=== PATIENT | female | born 1960 | race Caucasian/White ===

== ENCOUNTER 2017-03-27 13:21 | Emergency (ER) | payer OTHER ==
[~2017-03-27] VITALS: Wt 117.9 kg
[~2017-03-27 13:21] MED LIST: 'PARAFON FORTE500 M1 PO; ACETAMINOPHEN-H1 TA2 PO; ATARAX,VISTARIL50 MG PO; BACTRIM DS 8001 TA1 PO; CARAFATE1 G1 PO; CLINDAMYCIN HC300 MG PO; CYCLOBENZAPRINE10 MG PO; NEXIUM20 M1 PO; NEXIUM40 MG PO; PREDNISONE10 MG PO; PREDNISONE20 MG PO; PREDNISONE50 MG PO; PREVACID30 M1 PO; PROAIR HFA0.09 MG/AC INH; PROAIR HFA8.5 GM INH; PROCARDIA10 MG PO; PYRIDIUM200 MG PO; ROBITUSSIN AC 110 ML PO; TAB-A-VITE1 TA3 PO; ULTRAM50 MG PO; VIBRAMYCIN100 MG PO; VITAMIN B150 MG PO; VITAMIN D5000 UNIT PO; ZITHROMAX Z PA250 MG PO
[2017-03-27] MEDS ORDERED: HYDROXYZINE HCL25 M1 PO (13:34)
[2017-03-27] MEDS ORDERED: CYCLOBENZAPRINE10 MG PO (14:13)
[2017-03-27] MEDS ORDERED: HYDROCODONE BIT1 T11 PO (14:13)
[2017-03-27] MEDS ORDERED: PREDNISONE50 MG PO (14:13)
== END 2017-03-27 21:12 | disposition home or self-care (01) ==
LOC: ED 13:21
DX: S39.012A Strain of muscle, fascia and tendon of lower back, initial encounter (principal); F17.200 Nicotine dependence, unspecified, uncomplicated; F17.210 Nicotine dependence, cigarettes, uncomplicated; K21.9 Gastro-esophageal reflux disease without esophagitis; J45.909 Unspecified asthma, uncomplicated; Z79.899 Other long term (current) drug therapy; Z88.0 Allergy status to penicillin; Z88.1 Allergy status to other antibiotic agents; Z88.6 Allergy status to analgesic agent; X50.1XXA Overexertion from prolonged static or awkward postures, initial encounter; Y93.89 Activity, other specified; Y92.89 Other specified places as the place of occurrence of the external cause; Y99.8 Other external cause status

== ENCOUNTER 2017-07-10 17:26 | Inpatient (IN) | payer OTHER ==
[~2017-07-10] VITALS: Ht 162.5 cm; Wt 114.3 kg
[~2017-07-10 17:26] MED LIST changes: +HYDROCODONE BIT1 T11 PO; +HYDROXYZINE HCL25 M1 PO
[2017-07-10 17:33] VITALS: BP 138/68
[2017-07-10 18:29] LABS: HEMATOCRIT 39.4 % (37.0-47.0); HEMOGLOBIN 13.5 g/dl (12.0-16.0); MEAN CELL VOLUME 92.1 fl (81.0-99.0); MEAN CORPUSCULAR HGB 31.5 pg (27.0-31.0); MEAN CORPUSCULAR HGB CONC 34.3 g/dl (33.0-37.0); PLATELET COUNT AUTOMATED 132 10*3/uL (130-400); RED BLOOD COUNT 4.28 10*6/uL (4.10-5.10); RED CELL DISTRI WIDTH 12.3 % (0-14.5); WHITE BLOOD COUNT 15.3 10*3/uL (4.8-10.8)
[2017-07-10 18:44] LABS: ALBUMIN 3.1 gm/dl (3.1-4.5); ALKALINE PHOSPHATASE 116 U/L (45-117); BUN 9 mg/dl (7-24); CHLORIDE 105 mmol/L (98-107); POTASSIUM 3.7 mmol/L (3.5-5.1); SGOT/AST 39 IU/L (3-35); SGPT/ALT 44 U/L (12-78); SODIUM 137 mmol/L (136-145); TOTAL PROTEIN 7.5 gm/dL (6.4-8.2)
[2017-07-10 18:45] LABS: LIPASE 2297 U/L (73-393)
[2017-07-10 18:46] LABS: TOTAL CELLS COUNTED 100 #CELLS
[2017-07-10 18:47] LABS: PLATELET SUFFICIENCY NORMAL (NORMAL)
--- NOTE | 2017-07-10 19:10 | NUR ---
PT LYING IN BED IN ROOM. PT ALERT AND ORIENTED. IV PEPCID RUNNING. WILL CONTINUE TO MONITOR.
--- NOTE | 2017-07-10 19:24 | NUR ---
PT STATES THAT THE GI COCKTAIL THAT WAS GIVEN TO HER DID NOT GIVE HER MUCH PAIN RELIEF. PT STATES "IT TOOK THE EDGE OFF BUT IM STILL IN ALOT OF PAIN". PT RATES PAIN 8/10 AND PRIOR TO THE GI COCKTAIL PAIN WAS 10/10.
--- NOTE | 2017-07-10 19:31 | NUR ---
PT MEDICATED FOR PAIN PER DOCTORS ORDERS. PT RATES PAIN 03/29. WILL CONTINUE TO MONITOR.
[2017-07-10 19:33] VITALS: BP 134/47
[2017-07-10 19:38] LABS: BILIRUBIN 1+ (NEGATIVE); BLOOD NEGATIVE (NEGATIVE); CLARITY CLEAR (CLEAR); COLOR YELLOW (YELLOW); GLUCOSE NEGATIVE (NEGATIVE); KETONE 2+ (NEGATIVE); LEUKO ESTERASE 2+ (NEGATIVE); NITRITE POSITIVE (NEGATIVE)
--- NOTE | 2017-07-10 19:45 | NUR ---
PT STATES THAT THE MEDICATION GIVEN PROVIDED RELIEF OF PAIN. PT RATES PAIN 08/29. DOCTOR NOTIFIED. NO NEW ORDERS AT THIS TIME. WILL CONTINUE TO MONITOR.
[2017-07-10 20:02] LABS: BACTERIA 2+; WBC 16-20 wbc/hpf (0-5)
[2017-07-10 20:45] VITALS: BP 158/60
--- NOTE | 2017-07-10 21:30 | NUR ---
PT MEDICATED FOR PAIN PER DOCTORS ORDERS. PT RATES PAIN 7/10 PRIOR TO MEDICATION ADMINISTRATION. VSS. WILL CONTINUE TO MONITOR.
[2017-07-10 21:45] VITALS: BP 156/64
--- NOTE | 2017-07-10 22:00 | NUR ---
PT STATES THAT THE MEDICATION PROVIDED RELIEF OF PAIN. PT RATES PAIN 08/29. DOCTOR NOTIFIED. NO NEW ORDERS AT THIS TIME. WILL CONTINUE TO MONITOR.
[2017-07-10 22:15] VITALS: BP 134/66
--- NOTE | 2017-07-10 22:15 | NUR ---
Time: 2214 A 56 year old FEMALE admitted to 5E under services of PREET JOHNSON DO. Pt. arrived via bed from ER. Chief complaint: ABDOMINAL PAIN. ROSE VIERA
--- NOTE | 2017-07-10 22:50 | NUR ---
ATTEMPTED TO CALL RESIDENT FOR ADMISSION ORDERS AT THIS TIME.
--- NOTE | 2017-07-10 23:15 | NUR ---
ATTEMPTED TO CALL RESIDENT AGAIN FOR ORDERS AT THIS TIME.
[2017-07-11] VITALS: BP 127/76
--- NOTE | 2017-07-11 01:52 | NUR ---
MEDICATED WITH 1X DOSE OF ZOFRAN ORDERED FOR PATIENT C/O NAUSEA.
--- NOTE | 2017-07-11 03:31 | NUR ---
PATIENT MEDICATED WITH PRN MORPHINE ORDERED FOR C/O BACK AND STOMACH PAIN RATED AN 8.
--- NOTE | 2017-07-11 04:30 | NUR ---
EARLIER MEDICATION EFFECTIVE PER PATIENT.
[2017-07-11 04:55] LABS: HEMATOCRIT 36.1 % (37.0-47.0); HEMOGLOBIN 12.4 g/dl (12.0-16.0); MEAN CELL VOLUME 93.3 fl (81.0-99.0); MEAN CORPUSCULAR HGB CONC 34.3 g/dl (33.0-37.0); MEAN PLATELET VOLUME 11.3 fl (9.6-12.3); PLATELET COUNT AUTOMATED 115 10*3/uL (130-400); RED BLOOD COUNT 3.87 10*6/uL (4.10-5.10); RED CELL DISTRI WIDTH 12.6 % (0-14.5); WHITE BLOOD COUNT 19.3 10*3/uL (4.8-10.8)
[2017-07-11 05:03] LABS: ACT PARTIAL THROMBO TIME 28.6 SECONDS (20.8-31.5); INTERNATIONAL NORM RATIO 1.1 (2.0-3.5)
[2017-07-11 05:10] LABS: ALBUMIN 2.8 gm/dl (3.1-4.5); ALKALINE PHOSPHATASE 102 U/L (45-117); BUN 8 mg/dl (7-24); CHLORIDE 107 mmol/L (98-107); CHOLESTEROL 96 mg/dL (<200); CREATININE 0.66 mg/dL (0.55-1.02); HDL CHOLESTEROL 62 mg/dl (40-60); LDL CHOLESTEROL 24 mg/dL (9-159); PHOSPHOROUS 2.3 mg/dL (2.5-4.9); POTASSIUM 3.9 mmol/L (3.5-5.1); SGOT/AST 33 IU/L (3-35); SGPT/ALT 39 U/L (12-78); SODIUM 141 mmol/L (136-145); TOTAL PROTEIN 6.8 gm/dL (6.4-8.2); TRIGLYCERIDES 48 mg/dl (<150); VLDL CHOLESTEROL 10 mg/dL (6-40)
[2017-07-11 05:11] LABS: FREE T4 1.29 ng/dl (0.76-1.46)
[2017-07-11 05:16] LABS: THYROID STIM HORMONE (HS) 0.702 uIU/ml (0.358-4.75)
[2017-07-11 05:19] LABS: PLATELET SUFFICIENCY LOW (NORMAL); TOTAL CELLS COUNTED 100 #CELLS
[2017-07-11 07:49] LABS: VITAMIN D, 25-HYDROXY 6.6 ng/mL (30-100)
[2017-07-11 08:00] VITALS: BP 164/73
--- NOTE | 2017-07-11 09:00 | NUR ---
[employer] in to talk to patient. Patient states lives at home with friend. There are few steps in the home. Physician: igor [facility]acy: [facility] [place] [facility]: none Patient's level of ADLs: INDEPENDENT Patient has working utilities: all working DME: none Follow-up physician's appointment after d/c: will be made by [facility] nurse director upon discharge Does patient want to access PORTAL?: no Discharge plan discussed with patient, patient lives at home with a friend, states she gets around fine, patient states she will be going back home when able and denies any home needs. DEYANIRA العلي
[2017-07-11 12:00] VITALS: BP 165/77
[2017-07-11 16:00] VITALS: BP 155/54
--- NOTE | 2017-07-11 16:38 | NUR ---
CALLED ON PAIN MED SCHEDULED FOR NOW. GAVE IV PAIN MED INSTEAD DO TO NPO STATUS. WILL CONTINUE TO MONITOR.
--- NOTE | 2017-07-11 16:40 | NUR ---
PT GIVEN PRN ZOFRAN AND DILAUDID. PRN MEDS EFFECTIVE PER PT. WILL CONTINUE TO MONITOR PT.
--- NOTE | 2017-07-11 18:32 | NUR ---
PT GIVEN PRN DILAUDID FOR PAIN. WILL CONINUE TO MONITOR
--- NOTE | 2017-07-11 19:05 | NUR ---
PT ASSESSED FOR PRN BREATHING TX. NOT INDICATED AT THIS TIME. 94% ON ROOM AIR.
--- NOTE | 2017-07-11 19:23 | NUR ---
PREN DILAUDED THAT WAS GIVEN AT 6:30 WAS EFFECTIVE. PT'S PAIN DIMINISHED.
[2017-07-11 20:00] VITALS: BP 109/46
--- NOTE | 2017-07-11 20:30 | NUR ---
PATIENT MEDICATED WITH DILAUDID 1 MG IV PER PRN ORDER FOR C/O STOMACH PAIN. SEE EMAR. REINFORCED USE OF CALL LIGHT.
--- NOTE | 2017-07-11 21:15 | NUR ---
PATIENT STATED MEDICATION EFFECTIVE FOR PAIN. IV FLUIDS INFUSING PER ORDER.
--- NOTE | 2017-07-11 22:40 | NUR ---
PATIENT MEDICATED SLOWLY WITH DILAUDID 1 MG IV PER PRN ORDER FOR C/O ABDOMINAL PAIN. RATED PAIN A 6/10 WITH 10 BEING THE WORST. SEE EMAR. REINFORCED USE OF CALL LIGHT
--- NOTE | 2017-07-11 23:00 | NUR ---
PATIENT RESTING QUIETLY. MEDICATION GIVEN EARLIER WAS EFFECTIVE FOR PAIN. SEE EMAR
[2017-07-12] VITALS: BP 99/54
--- NOTE | 2017-07-12 02:49 | NUR ---
PATIENT MEDICATED WITH ZOFRAN AND DILAUDID 1 MG IV PER PRN ORDER FOR C/O NAUSEA AND PAIN. RATED PAIN A 6/10 WITH 10 BEING THE WORST. SEE EMAR
--- NOTE | 2017-07-12 03:45 | NUR ---
PATIENT APPEARS TO BE SLEEPING. MEDICATION EFFECTIVE.
--- NOTE | 2017-07-12 05:30 | NUR ---
PATIENT MEDICATED SLOWLY WITH DILAUDID 1MG IV PER PRN ORDER FOR C/O PAIN. SEE EMAR. REINFORCED USE OF CALL LIGHT.
[2017-07-12 06:19] LABS: BASO # 0.1 10*3/uL (0.0-0.1); BASO % 0.4 % (0.0-1.0); EOS # 0.7 10*3/uL (0.0-0.4); EOS % 5.4 % (1.0-4.0); HEMATOCRIT 33.8 % (37.0-47.0); HEMOGLOBIN 11.2 g/dl (12.0-16.0); LYMPH # 3.8 10*3/uL (1.3-4.4); MEAN CORPUSCULAR HGB 32.6 pg (27.0-31.0); MEAN CORPUSCULAR HGB CONC 33.1 g/dl (33.0-37.0); MEAN PLATELET VOLUME 11.4 fl (9.6-12.3); MONO # 1.6 10*3/uL (0.1-1.0); MONO % 12.1 % (3.0-9.0); NEUT # 7.3 10*3/uL (2.3-7.9); NEUT % 53.7 % (47.0-73.0); PLATELET COUNT AUTOMATED 126 10*3/uL (130-400); RED BLOOD COUNT 3.44 10*6/uL (4.10-5.10); RED CELL DISTRI WIDTH 12.7 % (0-14.5); WHITE BLOOD COUNT 13.5 10*3/uL (4.8-10.8)
[2017-07-12 06:22] LABS: CREATININE 1.22 mg/dL (0.55-1.02); POTASSIUM 3.8 mmol/L (3.5-5.1)
[2017-07-12 06:23] LABS: MEAN CELL VOLUME 98.3 fl (81.0-99.0)
[2017-07-12 20:00] VITALS: BP 122/51
--- NOTE | 2017-07-12 20:10 | NUR ---
PT. ALERT AND ORIENTED X 3. PT. IN BED AT THIS TIME. DENIES SOB, CP. C/O ABDOMINAL PAIN 03/29 RADIATING TO LOWER BACK. CALL LIGHT WITHIN REACH, BED IN LOWEST POSITION, WHEELS LOCKED. SEE SHIFT ASSESSMENT.
--- NOTE | 2017-07-12 20:14 | NUR ---
PRN DILAUDID ADM AT THIS TIME FOR PT. C/O ABDOMINAL PAIN 8/10 RADIATING TO BACK AT THIS TIME. WILL MONITOR EFFECTIVENESS.
[2017-07-13] VITALS: BP 117/65
[2017-07-13 06:44] LABS: BASO # 0.1 10*3/uL (0.0-0.1); BASO % 0.6 % (0.0-1.0); EOS # 0.6 10*3/uL (0.0-0.4); EOS % 7.1 % (1.0-4.0); HEMATOCRIT 30.6 % (37.0-47.0); LYMPH % 36.8 % (27.0-41.0); MEAN CELL VOLUME 97.5 fl (81.0-99.0); MEAN CORPUSCULAR HGB 31.8 pg (27.0-31.0); MEAN CORPUSCULAR HGB CONC 32.7 g/dl (33.0-37.0); MEAN PLATELET VOLUME 10.9 fl (9.6-12.3); MONO # 0.9 10*3/uL (0.1-1.0); MONO % 10.8 % (3.0-9.0); NEUT # 3.6 10*3/uL (2.3-7.9); NEUT % 44.1 % (47.0-73.0); PLATELET COUNT AUTOMATED 126 10*3/uL (130-400); RED BLOOD COUNT 3.14 10*6/uL (4.10-5.10); RED CELL DISTRI WIDTH 12.3 % (0-14.5); WHITE BLOOD COUNT 8.1 10*3/uL (4.8-10.8)
[2017-07-13 07:10] LABS: BUN 13 mg/dl (7-24); CHLORIDE 104 mmol/L (98-107); CREATININE 0.91 mg/dL (0.55-1.02); POTASSIUM 3.7 mmol/L (3.5-5.1); SODIUM 135 mmol/L (136-145)
--- NOTE | 2017-07-13 07:30 | NUR ---
PATIENT RESTING COMFORTABLY IN BED. PATIENT REPORTS HAVING ABD PAIN THAT IS DULL ACHY AND RADIATES FROM THE UMBILICUS TO THEIR BACK AND RATED 8/10 ON THE PAIN SCALE. PATIENT DENIES SOB, OR DIZZINESS UPON EXERTION. PATIENT CAN AMBULATE AND IS A&OX3. PATIENT IS NSR ON THE MONITOR. PATIENT REPORTS HAVING 1 EPISODE OF EMESIS THROUGHOUT THE NIGHT. CALL LIGHT WITHIN REACH. SEE ASSESSMENT.
--- NOTE | 2017-07-13 07:40 | NUR ---
PATIENT GIVEN DILAUDID PER PT REQUEST FOR ABD PAIN RATED 8/10 AND RADIATING TOWARD THE BACK. WILL CONTINUE TO MONITOR AND REASSESS.
[2017-07-13 08:00] VITALS: BP 112/43
--- NOTE | 2017-07-13 08:43 | NUR ---
DILAUDID WAS EFFECTIVE. PATIENT [place] AND DENIES ANY PAIN ON ASSESSMENT AND SAYS SHE "FEELS GOOD." CALL LIGHT WITHIN REACH. WILL CONTINUE TO MONITOR.
--- NOTE | 2017-07-13 11:00 | NUR ---
PATIENT WAS GIVEN DILAUDID PER PT REQUEST FOR ABD PAIN RATED 8/10 THAT RADIATES TO THEIR BACK. WILL CONTINUE TO MONITOR AND REASSESS.
[2017-07-13 12:00] VITALS: BP 136/61
--- NOTE | 2017-07-13 12:00 | NUR ---
PATIENT IS REATING IN BED. PATIENT DENIES ANY PAIN AT THIS TIME AND VERBALIZES THAT THEIR PAIN IS A 1/10. WILL CONTINUE TO MONITOR PATIENT.
--- NOTE | 2017-07-13 13:59 | NUR ---
PATIENT IS SLEEPING SOUNDLY IN THE ROOM, BUT AROUSES EASILY. PATIENT PULLED OUT IV IN THE LEFT WRIST AND ONE WAS RESTARTED IN THE LEFT HAND X1 ATTEMPT. PATIENT HAS MINOR ABD PAIN RATED 3/10 AT THIS TIME. PATIENT DENIES ANY NAUSEA OR VOMITING AT THIS TIME. PATIENT IS AMBULATORY. HOB ELEVATED. CALL LIGHT WITHIN REACH. SEE ASSESSMENT.
--- NOTE | 2017-07-13 15:50 | NUR ---
PATIENT GIVEN DILAUDID PER PT REQUEST FOR ABDOMINAL PAIN RATED 8/10 THAT RADIATES TO THE BACK AND IS DESCRIBED A CONTINUOUS DULL ACHE. WILL CONTINUE TO MONITOR AND REASSESS.
[2017-07-13 16:00] VITALS: BP 116/61
--- NOTE | 2017-07-13 16:50 | NUR ---
patient resting in bed. pain rated 2/10. pain medication has been effective. will continue to monitor.
--- NOTE | 2017-07-13 18:26 | NUR ---
patient resting in bed, with family at the bedside. patient has dull pain in the abdomen that gradually becomes worse. patient is on a clear liquid diet and tolerating it well. patient is ambulatory without assist. call light is within reach. hob elevated. patient has been cooperative and pleasant throughout shift. see assessment.
--- NOTE | 2017-07-13 19:40 | NUR ---
PT. AWAKE, ALERT AND ORIENTED X 3 AT THIS TIME. PT. IN BED AT THIS TIME. LUNGS CLEAR T/O, DENIES SOB, ON RA. HRR, PPP, NO EDEMA, DENIES CP. BS NORMO X 4 QUADS, PT. DENIES NVD AT THIS TIME. PT. AMBULATORY, GAIT STEADY. SKIN W/D/I. SHARP ABDOMINAL PAIN RADIATING TO BACK 03/29. CALL LIGHT WITHIN REACH, BED IN LOWEST POSITION, WHEELS LOCKED.
[2017-07-13 20:00] VITALS: BP 99/56
--- NOTE | 2017-07-13 20:24 | NUR ---
PT. C/O SHARP ABDOMINAL PAIN RADIATING TO THE BACK 03/29. REQUESTED PRN DILAUDID AT THIS TIME. WILL MONITOR FOR EFFECTIVENESS.
--- NOTE | 2017-07-13 20:54 | NUR ---
PT. STATED RELIEF OF PAIN AT THIS TIME.
--- NOTE | 2017-07-13 23:08 | NUR ---
SPOKE WITH DR. BARRERA AT THIS TIME REGARDING PTS. STATED PAIN OF 05/29. DR. BARRERA MADE AWARE OF PTS. CURRENT VITALS AND LAST PRN DILAUDID ADM. DR. BARRERA STATED THAT IT IS OK TO GIVE THE NEXT DOSE OF DILAUDID AT THIS TIME.
[2017-07-13 23:10] VITALS: BP 145/76
--- NOTE | 2017-07-13 23:13 | NUR ---
PT. GIVEN PRN DILAUDID PER DR. BARRERA AT THIS TIME. WILL MONITOR FOR EFFECTIVENESS.
--- NOTE | 2017-07-13 23:43 | NUR ---
PT. SLEEPING IN BED AT THIS TIME. PRN PAIN MEDICATION APPEARS TO BE EFFECTIVE, RESPIRATIONS EASY/NON-LABORED, NO SIGNS OF DISTRESS.
--- NOTE | 2017-07-14 04:05 | NUR ---
PT. REQUESTED PRN PAIN MEDICATION FOR ABDOMINAL PAIN 02/26. PRN DILAUDID ADM. AT THIS TIME. WILL MONITOR FOR EFFECTIVENESS.
--- NOTE | 2017-07-14 04:35 | NUR ---
PT. STATED RELIEF OF PAIN AT THIS TIME. RATED PAIN 0/10 AT THIS TIME.
[2017-07-14 06:29] LABS: BASO # 0.1 10*3/uL (0.0-0.1); BASO % 1.1 % (0.0-1.0); EOS # 0.5 10*3/uL (0.0-0.4); HEMATOCRIT 32.3 % (37.0-47.0); HEMOGLOBIN 10.3 g/dl (12.0-16.0); LYMPH # 2.3 10*3/uL (1.3-4.4); LYMPH % 34.7 % (27.0-41.0); MEAN CELL VOLUME 97.6 fl (81.0-99.0); MEAN CORPUSCULAR HGB 31.1 pg (27.0-31.0); MEAN CORPUSCULAR HGB CONC 31.9 g/dl (33.0-37.0); MEAN PLATELET VOLUME 10.5 fl (9.6-12.3); MONO # 0.7 10*3/uL (0.1-1.0); MONO % 10.3 % (3.0-9.0); NEUT % 45.4 % (47.0-73.0); PLATELET COUNT AUTOMATED 145 10*3/uL (130-400); RED BLOOD COUNT 3.31 10*6/uL (4.10-5.10); RED CELL DISTRI WIDTH 12.2 % (0-14.5); WHITE BLOOD COUNT 6.6 10*3/uL (4.8-10.8)
[2017-07-14 06:42] LABS: BUN 8 mg/dl (7-24); CHLORIDE 108 mmol/L (98-107); CREATININE 0.73 mg/dL (0.55-1.02); LIPASE 106 U/L (73-393); POTASSIUM 4.3 mmol/L (3.5-5.1); SODIUM 141 mmol/L (136-145)
--- NOTE | 2017-07-14 07:55 | NUR ---
ADMISNISTERED IV DILAUDID FOR ABDOMINAL PAIN RATED 8/10. WILL MONITOR FOR EFFECTIVENSS.
[2017-07-14 08:00] VITALS: BP 132/80
--- NOTE | 2017-07-14 08:40 | NUR ---
Patient resting quietly with no c/o discomfort. Respirations easy and regular. Vital signs stable. No overt distress. LINA RAMOS
[2017-07-14 12:00] VITALS: BP 108/53
--- NOTE | 2017-07-14 12:10 | NUR ---
ADMINISTERED IV DILAUDID PER PT REQUEST FOR ABDOMINAL PAIN RATED 7/10. WILL MONITOR FOR EFFECTIVENESS.
--- NOTE | 2017-07-14 13:00 | NUR ---
Patient resting quietly with no c/o discomfort. Respirations easy and regular. Vital signs stable. No overt distress. LINA RAMOS
[2017-07-14 16:00] VITALS: BP 106/58
[2017-07-14] MEDS ORDERED: VISTARIL25 MG PO (16:23)
--- NOTE | 2017-07-14 17:17 | NUR ---
Discharge instructions reviewed with patient/family. Patient receptive and verbalizes understanding. Follow-up care arranged. Written instructions given to patient/family. LINA RAMOS
== END 2017-07-14 17:17 | disposition home or self-care (01) | DRG 871 ==
LOC: ED 17:26 → EDHOLD 21:09 → 5E 21:09
PROVIDERS: Internal Medicine; Physician Assistant; Student in an Organized Health Care Education/Training Program; ADMIT Internal Medicine
DX: A41.9 Sepsis, unspecified organism (principal); K85.90 Acute pancreatitis without necrosis or infection, unspecified; N17.0 Acute kidney failure with tubular necrosis; E43 Unspecified severe protein-calorie malnutrition; R82.2 Biliuria; K76.0 Fatty (change of) liver, not elsewhere classified; E83.39 Other disorders of phosphorus metabolism; E66.01 Morbid (severe) obesity due to excess calories; N39.0 Urinary tract infection, site not specified; Z68.41 Body mass index [BMI] 40.0-44.9, adult; R65.20 Severe sepsis without septic shock; R03.0 Elevated blood-pressure reading, without diagnosis of hypertension; R73.9 Hyperglycemia, unspecified; E80.6 Other disorders of bilirubin metabolism; B18.2 Chronic viral hepatitis C; I70.0 Atherosclerosis of aorta; K57.90 Diverticulosis of intestine, part unspecified, without perforation or abscess without bleeding; M19.90 Unspecified osteoarthritis, unspecified site; R74.0 Nonspecific elevation of levels of transaminase and lactic acid dehydrogenase [LDH]; J45.909 Unspecified asthma, uncomplicated; K21.9 Gastro-esophageal reflux disease without esophagitis; M47.9 Spondylosis, unspecified; G89.29 Other chronic pain; M54.9 Dorsalgia, unspecified; F41.9 Anxiety disorder, unspecified; F32.9 Major depressive disorder, single episode, unspecified; R82.4 Acetonuria; F17.210 Nicotine dependence, cigarettes, uncomplicated; I73.00 Raynaud's syndrome without gangrene; Z88.0 Allergy status to penicillin; Z88.8 Allergy status to other drugs, medicaments and biological substances; Z79.899 Other long term (current) drug therapy; Z90.49 Acquired absence of other specified parts of digestive tract; Z82.49 Family history of ischemic heart disease and other diseases of the circulatory system; Z80.8 Family history of malignant neoplasm of other organs or systems; Z80.49 Family history of malignant neoplasm of other genital organs

== ENCOUNTER 2017-07-15 22:59 | Emergency (ER) | payer OTHER ==
[~2017-07-15] VITALS: Ht 162.5 cm; Wt 120.2 kg
[~2017-07-15 22:59] MED LIST changes: +VISTARIL25 MG PO
== END 2017-07-16 01:18 | disposition home or self-care (01) ==
LOC: ED 22:59
DX: R22.0 Localized swelling, mass and lump, head (principal); T36.0X5A Adverse effect of penicillins, initial encounter; R06.02 Shortness of breath; M19.90 Unspecified osteoarthritis, unspecified site; J45.909 Unspecified asthma, uncomplicated; K21.9 Gastro-esophageal reflux disease without esophagitis; Z88.0 Allergy status to penicillin; Z88.1 Allergy status to other antibiotic agents; Z88.6 Allergy status to analgesic agent; Z79.899 Other long term (current) drug therapy; Z86.19 Personal history of other infectious and parasitic diseases; Z87.891 Personal history of nicotine dependence; Y92.89 Other specified places as the place of occurrence of the external cause

== ENCOUNTER 2018-01-13 12:04 | Emergency (ER) | payer OTHER ==
[~2018-01-13] VITALS: Ht 162.5 cm; Wt 99.8 kg
[2018-01-13 12:20] LABS: BILIRUBIN NEGATIVE (NEGATIVE); BLOOD NEGATIVE (NEGATIVE); CLARITY SL CLOUDY (CLEAR); COLOR YELLOW (YELLOW); GLUCOSE NEGATIVE (NEGATIVE); KETONE NEGATIVE (NEGATIVE); LEUKO ESTERASE TRACE (NEGATIVE); NITRITE NEGATIVE (NEGATIVE); SPECIFIC GRAVITY 1.015 (1.005-1.030)
[2018-01-13 12:28] LABS: BACTERIA TRACE
[2018-01-13 12:58] LABS: BASO # 0.1 10*3/uL (0.0-0.1); BASO % 1.8 % (0.0-1.0); EOS # 0.7 10*3/uL (0.0-0.4); EOS % 9.7 % (1.0-4.0); HEMATOCRIT 39.3 % (37.0-47.0); HEMOGLOBIN 12.6 g/dl (12.0-16.0); LYMPH # 2.9 10*3/uL (1.3-4.4); LYMPH % 43.8 % (27.0-41.0); MEAN CELL VOLUME 97.3 fl (81.0-99.0); MEAN CORPUSCULAR HGB 31.2 pg (27.0-31.0); MEAN CORPUSCULAR HGB CONC 32.1 g/dl (33.0-37.0); MEAN PLATELET VOLUME 10.8 fl (9.6-12.3); MONO # 0.7 10*3/uL (0.1-1.0); MONO % 10.9 % (3.0-9.0); NEUT # 2.3 10*3/uL (2.3-7.9); NEUT % 33.5 % (47.0-73.0); PLATELET COUNT AUTOMATED 199 10*3/uL (130-400); RED BLOOD COUNT 4.04 10*6/uL (4.10-5.10); RED CELL DISTRI WIDTH 13.5 % (0-14.5); WHITE BLOOD COUNT 6.7 10*3/uL (4.8-10.8)
[2018-01-13 13:07] LABS: ACT PARTIAL THROMBO TIME 26.8 SECONDS (20.8-31.5); INTERNATIONAL NORM RATIO 1.1 (2.0-3.5)
[2018-01-13 13:14] LABS: ALBUMIN 3.1 gm/dl (3.1-4.5); ALKALINE PHOSPHATASE 118 U/L (45-117); BUN 9 mg/dl (7-24); CHLORIDE 110 mmol/L (98-107); CREATININE 0.62 mg/dL (0.55-1.02); POTASSIUM 4.3 mmol/L (3.5-5.1); SGOT/AST 59 IU/L (3-35); SGPT/ALT 45 U/L (12-78); SODIUM 142 mmol/L (136-145); TOTAL PROTEIN 7.8 gm/dL (6.4-8.2)
[2018-01-13 13:16] LABS: TROPONIN I < 0.015 ng/ml (<0.045)
[2018-01-14] MEDS ORDERED: DUONEB 3 MG/3 ML3 M1 INH (10:31)
== END 2018-01-13 14:23 | disposition home or self-care (01) ==
LOC: ED 12:04
PROVIDERS: Emergency Medicine
DX: M62.830 Muscle spasm of back (principal); M43.6 Torticollis; M19.90 Unspecified osteoarthritis, unspecified site; J45.909 Unspecified asthma, uncomplicated; K21.9 Gastro-esophageal reflux disease without esophagitis; E66.9 Obesity, unspecified; F17.200 Nicotine dependence, unspecified, uncomplicated; Z88.0 Allergy status to penicillin; Z88.1 Allergy status to other antibiotic agents; Z88.6 Allergy status to analgesic agent; Z79.899 Other long term (current) drug therapy; Z68.41 Body mass index [BMI] 40.0-44.9, adult

== ENCOUNTER 2018-02-06 10:25 | Inpatient (IN) | payer OTHER ==
[~2018-02-06] VITALS: Ht 160 cm; Wt 103.2 kg
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
[~2018-02-06 10:25] MED LIST changes: +DUONEB 3 MG/3 ML3 M1 INH; +ENOXAPARIN100 MG/1 M SC; +LEVAQUIN750 M1 PO; +Percocet 325 MG1 TAB PO; +VITAMIN D-32000 UNIT PO
[2018-02-06 10:26] VITALS: BP 158/92
[2018-02-06] MEDS ORDERED: XARE15TA PO (10:29)
[2018-02-06 11:47] LABS: BASO # 0.1 10*3/uL (0.0-0.1); EOS # 0.3 10*3/uL (0.0-0.4); EOS % 6.6 % (1.0-4.0); HEMATOCRIT 38.4 % (37.0-47.0); HEMOGLOBIN 12.5 g/dl (12.0-16.0); LYMPH # 2.2 10*3/uL (1.3-4.4); LYMPH % 43.5 % (27.0-41.0); MEAN CELL VOLUME 95.3 fl (81.0-99.0); MEAN CORPUSCULAR HGB CONC 32.6 g/dl (33.0-37.0); MEAN PLATELET VOLUME 11.2 fl (9.6-12.3); MONO # 0.5 10*3/uL (0.1-1.0); MONO % 8.7 % (3.0-9.0); NEUT # 2.1 10*3/uL (2.3-7.9); PLATELET COUNT AUTOMATED 121 10*3/uL (130-400); RED BLOOD COUNT 4.03 10*6/uL (4.10-5.10); RED CELL DISTRI WIDTH 13.8 % (0-14.5); WHITE BLOOD COUNT 5.2 10*3/uL (4.8-10.8)
[2018-02-06 12:04] LABS: ACT PARTIAL THROMBO TIME 38.3 SECONDS (20.8-31.5); INTERNATIONAL NORM RATIO 1.2 (2.0-3.5)
[2018-02-06 12:05] LABS: ALBUMIN 3.3 gm/dl (3.1-4.5); ALKALINE PHOSPHATASE 111 U/L (45-117); BUN 4 mg/dl (7-24); CHLORIDE 112 mmol/L (98-107); CREATININE 0.59 mg/dL (0.55-1.02); LIPASE 74 U/L (73-393); POTASSIUM 3.8 mmol/L (3.5-5.1); SGOT/AST 35 IU/L (3-35); SGPT/ALT 35 U/L (12-78); SODIUM 144 mmol/L (136-145); TOTAL PROTEIN 7.2 gm/dL (6.4-8.2)
[2018-02-06 12:06] LABS: TROPONIN I < 0.015 ng/ml (<0.045)
[2018-02-06 14:31] LABS: BILIRUBIN NEGATIVE (NEGATIVE); BLOOD NEGATIVE (NEGATIVE); CLARITY SL CLOUDY (CLEAR); COLOR YELLOW (YELLOW); GLUCOSE NEGATIVE (NEGATIVE); KETONE NEGATIVE (NEGATIVE); LEUKO ESTERASE NEGATIVE (NEGATIVE); NITRITE NEGATIVE (NEGATIVE); SPECIFIC GRAVITY <= 1.005 (1.005-1.030); UROBILINOGEN 0.2 E.U./dl (0.2-1.0)
[2018-02-06 14:55] LABS: BACTERIA TRACE; RBC 0-2 rbc/hpf (0-2)
[2018-02-06] MEDS ORDERED: PRILOSEC20 M1 PO (14:57)
[2018-02-06 16:00] VITALS: BP 124/59
[2018-02-06 20:00] VITALS: BP 113/56
[2018-02-07] VITALS: BP 96/49
[2018-02-07 08:00] VITALS: BP 112/45
[2018-02-07 08:35] LABS: BASO # 0.1 10*3/uL (0.0-0.1); BASO % 1.1 % (0.0-1.0); EOS # 0.6 10*3/uL (0.0-0.4); EOS % 10.2 % (1.0-4.0); HEMATOCRIT 38.7 % (37.0-47.0); HEMOGLOBIN 12.1 g/dl (12.0-16.0); LYMPH # 3.5 10*3/uL (1.3-4.4); LYMPH % 56.6 % (27.0-41.0); MEAN CELL VOLUME 98.2 fl (81.0-99.0); MEAN CORPUSCULAR HGB 30.7 pg (27.0-31.0); MEAN CORPUSCULAR HGB CONC 31.3 g/dl (33.0-37.0); MEAN PLATELET VOLUME 11.7 fl (9.6-12.3); MONO # 0.5 10*3/uL (0.1-1.0); MONO % 7.7 % (3.0-9.0); NEUT # 1.5 10*3/uL (2.3-7.9); NEUT % 24.1 % (47.0-73.0); PLATELET COUNT AUTOMATED 132 10*3/uL (130-400); RED BLOOD COUNT 3.94 10*6/uL (4.10-5.10); RED CELL DISTRI WIDTH 13.8 % (0-14.5); WHITE BLOOD COUNT 6.2 10*3/uL (4.8-10.8)
[2018-02-07 08:51] LABS: ACT PARTIAL THROMBO TIME 37.4 SECONDS (20.8-31.5); INTERNATIONAL NORM RATIO 1.2 (2.0-3.5)
[2018-02-07 08:56] LABS: ALBUMIN 3.2 gm/dl (3.1-4.5); ALKALINE PHOSPHATASE 109 U/L (45-117); BUN 7 mg/dl (7-24); CHLORIDE 108 mmol/L (98-107); CHOLESTEROL 129 mg/dL (<200); FREE T4 1.12 ng/dl (0.76-1.46); HDL CHOLESTEROL 57 mg/dl (40-60); LDL CHOLESTEROL 54 mg/dL (9-159); PHOSPHOROUS 4.4 mg/dL (2.5-4.9); POTASSIUM 3.9 mmol/L (3.5-5.1); SGOT/AST 33 IU/L (3-35); SGPT/ALT 31 U/L (12-78); SODIUM 145 mmol/L (136-145); TRIGLYCERIDES 90 mg/dl (<150); VLDL CHOLESTEROL 18 mg/dL (6-40)
[2018-02-07 09:02] LABS: TOTAL PROTEIN 6.9 gm/dL (6.4-8.2)
[2018-02-07] MEDS ORDERED: DOXYCYCLINE100 M3 PO (10:19)
== END 2018-02-07 11:03 | disposition home health service (06) | DRG 194 ==
LOC: ED 10:25 → EDHOLD 14:39 → 4E 14:39
PROVIDERS: Internal Medicine; Physician Assistant
DX: J18.1 Lobar pneumonia, unspecified organism (principal); E44.1 Mild protein-calorie malnutrition; D69.6 Thrombocytopenia, unspecified; E87.8 Other disorders of electrolyte and fluid balance, not elsewhere classified; E66.01 Morbid (severe) obesity due to excess calories; Z68.41 Body mass index [BMI] 40.0-44.9, adult; R07.89 Other chest pain; K76.0 Fatty (change of) liver, not elsewhere classified; J44.9 Chronic obstructive pulmonary disease, unspecified; M54.6 Pain in thoracic spine; M79.605 Pain in left leg; R73.9 Hyperglycemia, unspecified; K21.9 Gastro-esophageal reflux disease without esophagitis; B19.20 Unspecified viral hepatitis C without hepatic coma; K57.90 Diverticulosis of intestine, part unspecified, without perforation or abscess without bleeding; I70.0 Atherosclerosis of aorta; M54.9 Dorsalgia, unspecified; F41.9 Anxiety disorder, unspecified; F32.9 Major depressive disorder, single episode, unspecified; I73.00 Raynaud's syndrome without gangrene; G47.00 Insomnia, unspecified; G89.29 Other chronic pain; M47.20 Other spondylosis with radiculopathy, site unspecified; M15.3 Secondary multiple arthritis; B18.2 Chronic viral hepatitis C; Z86.711 Personal history of pulmonary embolism; Z87.891 Personal history of nicotine dependence; Z82.49 Family history of ischemic heart disease and other diseases of the circulatory system; Z80.42 Family history of malignant neoplasm of prostate; Z88.8 Allergy status to other drugs, medicaments and biological substances; Z88.0 Allergy status to penicillin; Z79.899 Other long term (current) drug therapy

== ENCOUNTER 2018-05-13 12:09 | Emergency (ER) | payer OTHER ==
[~2018-05-13] VITALS: Ht 160 cm; Wt 89.4 kg
[~2018-05-13 12:09] MED LIST changes: +DOXYCYCLINE100 M3 PO; +PRILOSEC20 M1 PO; +XARE15TA PO
[2018-05-13 12:48] LABS: BASO # 0.1 10*3/uL (0.0-0.1); BASO % 0.9 % (0.0-1.0); EOS # 0.4 10*3/uL (0.0-0.4); EOS % 4.2 % (1.0-4.0); HEMATOCRIT 44.4 % (37.0-47.0); LYMPH # 3.3 10*3/uL (1.3-4.4); LYMPH % 38.9 % (27.0-41.0); MEAN CELL VOLUME 91.7 fl (81.0-99.0); MEAN CORPUSCULAR HGB CONC 33.8 g/dl (33.0-37.0); MEAN PLATELET VOLUME 11.4 fl (9.6-12.3); MONO # 0.8 10*3/uL (0.1-1.0); MONO % 9.1 % (3.0-9.0); NEUT % 46.7 % (47.0-73.0); PLATELET COUNT AUTOMATED 128 10*3/uL (130-400); RED BLOOD COUNT 4.84 10*6/uL (4.10-5.10); RED CELL DISTRI WIDTH 12.1 % (0-14.5); WHITE BLOOD COUNT 8.5 10*3/uL (4.8-10.8)
[2018-05-13 13:00] LABS: BILIRUBIN NEGATIVE (NEGATIVE); BLOOD TRACE-INTACT (NEGATIVE); CLARITY SL CLOUDY (CLEAR); COLOR YELLOW (YELLOW); GLUCOSE NEGATIVE (NEGATIVE); KETONE NEGATIVE (NEGATIVE); LEUKO ESTERASE 3+ (NEGATIVE); NITRITE NEGATIVE (NEGATIVE); PH 5.5 (5.0-9.0); SPECIFIC GRAVITY <= 1.005 (1.005-1.030)
[2018-05-13 13:05] LABS: ALBUMIN 3.8 gm/dl (3.1-4.5); ALKALINE PHOSPHATASE 126 U/L (45-117); BUN 8 mg/dl (7-24); CHLORIDE 110 mmol/L (98-107); CREATININE 0.66 mg/dL (0.55-1.02); LIPASE 90 U/L (73-393); POTASSIUM 3.9 mmol/L (3.5-5.1); SGOT/AST 45 IU/L (3-35); SGPT/ALT 49 U/L (12-78); SODIUM 143 mmol/L (136-145); TOTAL PROTEIN 8.3 gm/dL (6.4-8.2)
[2018-05-13 13:06] LABS: ACT PARTIAL THROMBO TIME 35.6 SECONDS (20.8-31.5); INTERNATIONAL NORM RATIO 1.2 (2.0-3.5)
[2018-05-13 13:07] LABS: WBC TNTC wbc/hpf (0-5)
[2018-05-13] MEDS ORDERED: ZOFRAN4 MG PO (15:13)
[2018-05-13] MEDS ORDERED: PYRIDIUM200 M1 PO (15:13)
[2018-05-13] MEDS ORDERED: SEPTDS PO (15:13)
== END 2018-05-13 15:31 | disposition home or self-care (01) ==
LOC: ED 12:09
PROVIDERS: Nurse Practitioner Family
DX: N39.0 Urinary tract infection, site not specified (principal); R94.5 Abnormal results of liver function studies; R03.0 Elevated blood-pressure reading, without diagnosis of hypertension; K21.9 Gastro-esophageal reflux disease without esophagitis; J44.9 Chronic obstructive pulmonary disease, unspecified; M19.90 Unspecified osteoarthritis, unspecified site; E66.01 Morbid (severe) obesity due to excess calories; Z88.6 Allergy status to analgesic agent; Z88.0 Allergy status to penicillin; Z88.1 Allergy status to other antibiotic agents; Z79.899 Other long term (current) drug therapy; Z68.41 Body mass index [BMI] 40.0-44.9, adult; Z87.891 Personal history of nicotine dependence

== ENCOUNTER → 2018-07-01 | Outpatient (CLI) | payer OTHER ==
[~2018-07-01] MED LIST changes: +PYRIDIUM200 M1 PO; +SEPTDS PO; +ZOFRAN4 MG PO
[2018-07-01 13:10] LABS: BASO # 0.1 10*3/uL (0.0-0.1); BASO % 1.4 % (0.0-1.0); EOS # 0.5 10*3/uL (0.0-0.4); EOS % 10.2 % (1.0-4.0); HEMATOCRIT 36.2 % (37.0-47.0); HEMOGLOBIN 12.1 g/dl (12.0-16.0); LYMPH # 2.1 10*3/uL (1.3-4.4); LYMPH % 41.9 % (27.0-41.0); MEAN CELL VOLUME 95.5 fl (81.0-99.0); MEAN CORPUSCULAR HGB 31.9 pg (27.0-31.0); MEAN CORPUSCULAR HGB CONC 33.4 g/dl (33.0-37.0); MEAN PLATELET VOLUME 10.7 fl (9.6-12.3); MONO # 0.5 10*3/uL (0.1-1.0); MONO % 9.6 % (3.0-9.0); NEUT # 1.8 10*3/uL (2.3-7.9); NEUT % 36.7 % (47.0-73.0); PLATELET COUNT AUTOMATED 131 10*3/uL (130-400); RED BLOOD COUNT 3.79 10*6/uL (4.10-5.10); RED CELL DISTRI WIDTH 13.1 % (0-14.5)
[2018-07-01 13:17] LABS: URINE AMPHETAMINES < 1000 (1000ng/ml); URINE BARBITURATES < 200 (200ng/ml); URINE BENZODIAZEPINES < 200 (200ng/ml); URINE CANNABINOIDS (THC) < 50 (50ng/ml); URINE COCAINE < 300 (300ng/ml); URINE METHADONE < 300 (300ng/ml); URINE OPIATES < 300 (300ng/ml)
[2018-07-01 13:19] LABS: URINE PHENCYCLIDINE < 25 (25ng/ml)
[2018-07-01 13:43] LABS: ALBUMIN 3.3 gm/dl (3.1-4.5); ALKALINE PHOSPHATASE 126 U/L (45-117); BILIRUBIN, DIRECT 0.4 mg/dL (0.0-0.2); BUN 8 mg/dl (7-24); CHLORIDE 107 mmol/L (98-107); CREATININE 0.65 mg/dL (0.55-1.02); POTASSIUM 3.7 mmol/L (3.5-5.1); SGOT/AST 37 IU/L (3-35); SGPT/ALT 30 U/L (12-78); SODIUM 142 mmol/L (136-145)
[2018-07-02 08:09] LABS: HEPATITIS B SURFACE AG Negative (Negative); HEPATITIS C VIRUS ANTIBODY >11.0 s/co (0.0-0.9)
[2018-07-02 18:06] LABS: HCV LOG10 5.977 (.); HEPATITIS C QNT 949000 IU/mL (.)
== END | disposition home or self-care (01) ==
LOC: LAB 12:45
PROVIDERS: Internal Medicine Gastroenterology
DX: B18.2 Chronic viral hepatitis C (principal)

== ENCOUNTER 2019-09-01 18:16 | Inpatient (IN) | payer OTHER ==
[~2019-09-01] VITALS: Ht 160 cm; Wt 103.1 kg
[~2019-09-01 18:16] MED LIST changes: +CARDIZEM CD120 M2 PO; +HYDROCODONE-AC1 EAC1 PO; +MUCINEX ER600 MG PO; +PROCARDIA XL30 MG PO; +XARE20MG PO; +ZITHROMAX250 MG PO; +ZOLOFT25 MG PO
[2019-09-01 18:22] VITALS: BP 123/79
[2019-09-01 18:39] LABS: BASO # 0.1 10*3/uL (0.0-0.1); BASO % 0.9 % (0.0-1.0); EOS # 0.5 10*3/uL (0.0-0.4); EOS % 5.4 % (1.0-4.0); HEMATOCRIT 41.5 % (37.0-47.0); HEMOGLOBIN 13.8 g/dl (12.0-16.0); LYMPH # 4.7 10*3/uL (1.3-4.4); LYMPH % 49.7 % (27.0-41.0); MEAN CELL VOLUME 93.7 fl (81.0-99.0); MEAN CORPUSCULAR HGB 31.2 pg (27.0-31.0); MEAN CORPUSCULAR HGB CONC 33.3 g/dl (33.0-37.0); MEAN PLATELET VOLUME 11.1 fl (9.6-12.3); MONO # 0.8 10*3/uL (0.1-1.0); MONO % 8.9 % (3.0-9.0); NEUT # 3.3 10*3/uL (2.3-7.9); NEUT % 34.8 % (47.0-73.0); PLATELET COUNT AUTOMATED 150 10*3/uL (130-400); RED BLOOD COUNT 4.43 10*6/uL (4.10-5.10); RED CELL DISTRI WIDTH 12.4 % (0-14.5); WHITE BLOOD COUNT 9.5 10*3/uL (4.8-10.8)
[2019-09-01 19:01] LABS: ACT PARTIAL THROMBO TIME 32.5 SECONDS (20.0-32.1); INTERNATIONAL NORM RATIO 1.1 (2.0-3.5)
[2019-09-01 19:03] LABS: ALBUMIN 3.6 gm/dl (3.1-4.5); ALKALINE PHOSPHATASE 139 U/L (45-117); BUN 11 mg/dl (7-24); CHLORIDE 111 mmol/L (98-107); CREATININE 0.83 mg/dL (0.55-1.02); POTASSIUM 3.5 mmol/L (3.5-5.1); SGOT/AST 67 IU/L (3-35); SGPT/ALT 64 U/L (12-78); SODIUM 142 mmol/L (136-145); TOTAL PROTEIN 7.5 gm/dL (6.4-8.2)
[2019-09-01 19:13] LABS: TROPONIN I < 0.015 ng/ml (<0.045)
[2019-09-01 20:24] VITALS: BP 113/69
[2019-09-01 22:00] VITALS: BP 118/70
[2019-09-01] MEDS ORDERED: XARELTO20 M1 PO (22:19)
[2019-09-02] VITALS: BP 125/62
[2019-09-02 06:22] LABS: BASO # 0.1 10*3/uL (0.0-0.1); BASO % 1.2 % (0.0-1.0); EOS # 0.3 10*3/uL (0.0-0.4); EOS % 4.3 % (1.0-4.0); HEMATOCRIT 39.1 % (37.0-47.0); HEMOGLOBIN 12.6 g/dl (12.0-16.0); LYMPH # 3.5 10*3/uL (1.3-4.4); LYMPH % 53.7 % (27.0-41.0); MEAN CELL VOLUME 96.3 fl (81.0-99.0); MEAN CORPUSCULAR HGB CONC 32.2 g/dl (33.0-37.0); MEAN PLATELET VOLUME 11.6 fl (9.6-12.3); MONO # 0.5 10*3/uL (0.1-1.0); MONO % 8.2 % (3.0-9.0); NEUT # 2.1 10*3/uL (2.3-7.9); NEUT % 32.1 % (47.0-73.0); PLATELET COUNT AUTOMATED 127 10*3/uL (130-400); RED BLOOD COUNT 4.06 10*6/uL (4.10-5.10); RED CELL DISTRI WIDTH 12.6 % (0-14.5); WHITE BLOOD COUNT 6.5 10*3/uL (4.8-10.8)
[2019-09-02 06:26] LABS: BUN 14 mg/dl (7-24); CHLORIDE 112 mmol/L (98-107); CREATININE 0.84 mg/dL (0.55-1.02); POTASSIUM 4.1 mmol/L (3.5-5.1); SODIUM 145 mmol/L (136-145)
[2019-09-02 06:28] LABS: CHOLESTEROL 149 mg/dL (<200); PHOSPHOROUS 3.5 mg/dL (2.5-4.9); TRIGLYCERIDES 67 mg/dl (<150); VLDL CHOLESTEROL 13 mg/dL (6-40)
[2019-09-02 06:37] LABS: FREE T4 1.07 ng/dl (0.76-1.46); HDL CHOLESTEROL 77 mg/dl (40-60); LDL CHOLESTEROL 59 mg/dL (9-159)
[2019-09-02 08:00] VITALS: BP 132/86
[2019-09-02 08:16] LABS: VITAMIN D, 25-HYDROXY 21.7 ng/mL (30-100)
[2019-09-02] MEDS ORDERED: CYCLOBENZAPRINE5 M3 PO (13:47)
== END 2019-09-02 14:37 | disposition home or self-care (01) | DRG 203 ==
LOC: ED 18:16 → EDHOLD 21:08 → 4E 21:08
PROVIDERS: Emergency Medicine; Internal Medicine; ADMIT Internal Medicine
DX: R07.89 Other chest pain (principal); M54.6 Pain in thoracic spine; M47.819 Spondylosis without myelopathy or radiculopathy, site unspecified; K76.0 Fatty (change of) liver, not elsewhere classified; I73.00 Raynaud's syndrome without gangrene; D68.59 Other primary thrombophilia; J44.9 Chronic obstructive pulmonary disease, unspecified; E66.01 Morbid (severe) obesity due to excess calories; E87.8 Other disorders of electrolyte and fluid balance, not elsewhere classified; K21.9 Gastro-esophageal reflux disease without esophagitis; E55.9 Vitamin D deficiency, unspecified; M19.90 Unspecified osteoarthritis, unspecified site; G89.29 Other chronic pain; F32.9 Major depressive disorder, single episode, unspecified; I48.0 Paroxysmal atrial fibrillation; F17.210 Nicotine dependence, cigarettes, uncomplicated; G47.00 Insomnia, unspecified; B18.2 Chronic viral hepatitis C; K59.00 Constipation, unspecified; F41.9 Anxiety disorder, unspecified; Z80.42 Family history of malignant neoplasm of prostate; Z80.49 Family history of malignant neoplasm of other genital organs; Z88.1 Allergy status to other antibiotic agents; Z86.711 Personal history of pulmonary embolism; Z68.41 Body mass index [BMI] 40.0-44.9, adult; Z88.0 Allergy status to penicillin; Z88.8 Allergy status to other drugs, medicaments and biological substances; Z79.899 Other long term (current) drug therapy; Z71.6 Tobacco abuse counseling; Z79.01 Long term (current) use of anticoagulants

== ENCOUNTER 2023-06-05 10:22 | Emergency (ER) | payer OTHER ==
[~2023-06-05] VITALS: Ht 157.4 cm; Wt 97.1 kg
[~2023-06-05 10:22] MED LIST changes: +CYCLOBENZAPRINE5 M3 PO; +XARELTO20 M1 PO
[2023-06-05] MEDS ORDERED: DULCOLAX STOOL100 M1 PO (10:29)
[2023-06-05 11:49] LABS: BASO # 0.1 10*3/uL (0.0-0.1); BASO % 1.2 % (0.0-1.0); EOS # 0.3 10*3/uL (0.0-0.4); EOS % 5.8 % (1.0-4.0); HEMATOCRIT 30.5 % (37.0-47.0); LYMPH # 1.9 10*3/uL (1.3-4.4); LYMPH % 37.3 % (27.0-41.0); MEAN CELL VOLUME 62.1 fl (81.0-99.0); MEAN CORPUSCULAR HGB 17.3 pg (27.0-31.0); MEAN CORPUSCULAR HGB CONC 27.9 g/dl (33.0-37.0); MEAN PLATELET VOLUME 9.2 fl (9.6-12.3); MONO # 0.5 10*3/uL (0.1-1.0); MONO % 10.5 % (3.0-9.0); NEUT # 2.2 10*3/uL (2.3-7.9); PLATELET COUNT AUTOMATED 170 10*3/uL (130-400); RED BLOOD COUNT 4.91 10*6/uL (4.10-5.10); RED CELL DISTRI WIDTH 22.3 % (0-14.5)
[2023-06-05 12:11] LABS: BUN 7 mg/dl (9-23); CHLORIDE 110 mmol/L (98-107); POTASSIUM 3.5 mmol/L (3.4-5.1)
== END 2023-06-05 13:17 | disposition home or self-care (01) ==
LOC: ED 10:22
PROVIDERS: Physician Assistant Medical
DX: M25.50 Pain in unspecified joint (principal); D64.9 Anemia, unspecified; J44.9 Chronic obstructive pulmonary disease, unspecified; I48.91 Unspecified atrial fibrillation; Z88.8 Allergy status to other drugs, medicaments and biological substances; Z88.1 Allergy status to other antibiotic agents; Z88.0 Allergy status to penicillin; Z98.890 Other specified postprocedural states; Z90.49 Acquired absence of other specified parts of digestive tract; F17.210 Nicotine dependence, cigarettes, uncomplicated; Z20.822 Contact with and (suspected) exposure to COVID-19

== ENCOUNTER → 2023-10-03 | Outpatient (CLI) | payer OTHER ==
[~2023-10-03] MED LIST changes: +DULCOLAX STOOL100 M1 PO
== END | disposition home or self-care (01) ==
LOC: RAD 14:57 → LAB 14:57
PROVIDERS: ATTEND Nurse Practitioner Primary Care
DX: M25.551 Pain in right hip (principal)

== ENCOUNTER 2024-11-12 15:17 | Emergency (ER) | payer OTHER ==
[~2024-11-12] VITALS: Wt 110.2 kg
[2024-11-12] MEDS ORDERED: Acetaminophen/Oxycodone 5 MG/325 MG TABLET PO ONE (15:40)
[2024-11-12] MEDS ORDERED: PERCOCET 5-3251 EACH PO (16:06)
== END 2024-11-12 15:57 | disposition home or self-care (01) ==
LOC: ED 15:17
DX: S42.251A Displaced fracture of greater tuberosity of right humerus, initial encounter for closed fracture (principal); J44.9 Chronic obstructive pulmonary disease, unspecified; Z79.899 Other long term (current) drug therapy; Z88.6 Allergy status to analgesic agent; Z88.1 Allergy status to other antibiotic agents; Z88.0 Allergy status to penicillin; Z88.8 Allergy status to other drugs, medicaments and biological substances; Z98.890 Other specified postprocedural states; W18.39XA Other fall on same level, initial encounter; Y93.89 Activity, other specified; Y92.89 Other specified places as the place of occurrence of the external cause; Y99.8 Other external cause status

== ENCOUNTER 2024-11-17 13:32 | Emergency (ER) | payer OTHER ==
[~2024-11-17] VITALS: Ht 162.5 cm; Wt 105.4 kg
[~2024-11-17 13:32] MED LIST changes: +PERCOCET 5-3251 EACH PO
[2024-11-17] MEDS ORDERED: DULOXETINE HCL30 MG PO (13:39)
[2024-11-17 14:02] LABS: BASO # 0.1 10*3/uL (0.0-0.1); BASO % 1.1 % (0.0-1.0); EOS # 0.4 10*3/uL (0.0-0.4); EOS % 5.5 % (1.0-4.0); HEMATOCRIT 25.8 % (37.0-47.0); MEAN CELL VOLUME 67.4 fl (81.0-99.0); MEAN CORPUSCULAR HGB 18.8 pg (27.0-31.0); MEAN CORPUSCULAR HGB CONC 27.9 g/dl (33.0-37.0); MEAN PLATELET VOLUME 8.6 fl (9.6-12.3); MONO % 12.9 % (3.0-9.0); NEUT # 4.6 10*3/uL (2.3-7.9); NEUT % 58.3 % (47.0-73.0); PLATELET COUNT AUTOMATED 208 10*3/uL (130-400); RED BLOOD COUNT 3.83 10*6/uL (4.10-5.10); RED CELL DISTRI WIDTH 20.7 % (0-14.5); WHITE BLOOD COUNT 7.9 10*3/uL (4.8-10.8)
[2024-11-17 14:02] LABS: BILIRUBIN Negative (Negative); BLOOD Negative (Negative); CLARITY Cloudy (Clear); COLOR Dark Yellow (Yellow); GLUCOSE Negative (Negative); KETONE Trace (Negative); LEUKO ESTERASE 1+ (Negative); NITRITE Negative (Negative); PH 5.5 (4.5-8.0); SPECIFIC GRAVITY >= 1.030 (1.001-1.030)
[2024-11-17 14:09] LABS: URINE AMPHETAMINES Positive (1000ng/ml); URINE BARBITURATES Negative (200ng/ml); URINE BENZODIAZEPINES Negative (200ng/ml); URINE CANNABINOIDS (THC) Negative (50ng/ml); URINE COCAINE Negative (300ng/ml); URINE METHADONE Negative (300ng/ml); URINE OPIATES Positive (300ng/ml); URINE PHENCYCLIDINE Negative (25ng/ml)
[2024-11-17 14:13] LABS: BACTERIA 1+; CALCIUM OXALATE CRYSTALS 1+; MUCOUS 1+; RBC 0-2 rbc/hpf (0-2)
[2024-11-17 14:47] LABS: ALKALINE PHOSPHATASE 122 U/L (46-116); BUN 14 mg/dl (9-23); CHLORIDE 109 mmol/L (98-107); POTASSIUM 3.6 mmol/L (3.4-5.1); SGPT/ALT 14 U/L (5-49); TOTAL PROTEIN 7.3 gm/dL (6.0-8.0)
== END 2024-11-17 14:59 | disposition home or self-care (01) ==
LOC: ED 13:32
PROVIDERS: Internal Medicine
DX: F15.951 Other stimulant use, unspecified with stimulant-induced psychotic disorder with hallucinations (principal); R00.0 Tachycardia, unspecified; M79.601 Pain in right arm; Z87.891 Personal history of nicotine dependence; Z98.890 Other specified postprocedural states; Z79.899 Other long term (current) drug therapy; Z88.8 Allergy status to other drugs, medicaments and biological substances; Z88.0 Allergy status to penicillin; Z88.1 Allergy status to other antibiotic agents

== ENCOUNTER → 2024-11-26 | Outpatient (CLI) | payer OTHER ==
[~2024-11-26] MED LIST changes: +DULOXETINE HCL30 MG PO
== END | disposition home or self-care (01) ==
LOC: RAD 09:41
PROVIDERS: ATTEND Orthopaedic Surgery
DX: S42.211D Unspecified displaced fracture of surgical neck of right humerus, subsequent encounter for fracture with routine healing (principal); M19.011 Primary osteoarthritis, right shoulder; X58.XXXD Exposure to other specified factors, subsequent encounter

== ENCOUNTER 2025-07-12 21:08 | Inpatient (IN) | payer OTHER ==
[~2025-07-12] VITALS: Ht 160 cm; Wt 112.5 kg
[2025-07-12 21:33] VITALS: BP 146/81
[2025-07-12 21:58] LABS: BASO # 0.1 10*3/uL (0.0-0.1); BASO % 1.2 % (0.0-1.0); EOS # 0.1 10*3/uL (0.0-0.4); EOS % 2.2 % (1.0-4.0); MEAN CELL VOLUME 75.0 fl (81.0-99.0); MEAN CORPUSCULAR HGB 19.3 pg (27.0-31.0); MEAN PLATELET VOLUME 9.7 fl (9.6-12.3); MONO # 0.4 10*3/uL (0.1-1.0); MONO % 8.4 % (3.0-9.0); NEUT # 3.5 10*3/uL (2.3-7.9); NEUT % 69.5 % (47.0-73.0); NUCLEATED RED BLOOD CELL 0.0 % (0.0-0.0); NUCLEATED RED BLOOD CELL 0.0 10*3/uL (0.0-0.0); PLATELET COUNT AUTOMATED 134 10*3/uL (130-400); RED CELL DISTRI WIDTH 29.5 % (0-14.5)
[2025-07-12 22:26] LABS: BUN 9 mg/dl (9-23); SGPT/ALT 13 U/L (5-49)
[2025-07-12 22:29] LABS: ETHYL ALCOHOL < 3.0 mg/dl (<3)
[2025-07-12 22:37] LABS: URINE AMPHETAMINES Negative (1000ng/ml); URINE BARBITURATES Negative (200ng/ml); URINE BENZODIAZEPINES Negative (200ng/ml); URINE CANNABINOIDS (THC) Negative (50ng/ml); URINE COCAINE Negative (300ng/ml); URINE METHADONE Negative (300ng/ml); URINE OPIATES Positive (300ng/ml); URINE PHENCYCLIDINE Negative (25ng/ml)
[2025-07-13] MEDS ORDERED: BUMETANIDE 1 MG/4 ML VIAL IV ONE (01:05)
[2025-07-13] MEDS ORDERED: HYDROmorphONE Hydrochloride 0.5 MG/0.5 ML SYRINGE IV ONE ×2 (03:45→07:50)
[2025-07-13] MEDS ORDERED: Ondansetron Hydrochloride 4 MG/2 ML VIAL IV ONE (03:45)
[2025-07-13 06:46] VITALS: BP 133/74
[2025-07-13 08:53] VITALS: BP 135/67
[2025-07-13] MEDS ORDERED: BISACODYL 10 MG SUPP R PRN (13:45)
[2025-07-13] MEDS ORDERED: ACETAMINOPHEN 650 MG SUPP R PRN (13:45)
[2025-07-13] MEDS ORDERED: ACETAMINOPHEN 325 MG TAB PO PRN (13:45)
[2025-07-13] MEDS ORDERED: BISACODYL 5 MG TAB PO PRN (13:45)
[2025-07-13 14:16] VITALS: BP 111/57
[2025-07-13] MEDS ORDERED: DIGOXIN 500 MCG/2 ML AMP IV ONE (14:45)
[2025-07-13 15:54] VITALS: BP 135/66
[2025-07-13] MEDS ORDERED: Enoxaparin Sodium 120 MG/0.8 ML SYR SC ONE (17:20)
[2025-07-13 18:42] VITALS: BP 130/78
[2025-07-13 21:00] VITALS: BP 110/62
[2025-07-13] MEDS ORDERED: DIGOXIN 500 MCG/2 ML AMP IV SCH (21:00)
[2025-07-13] MEDS ORDERED: Enoxaparin Sodium 120 MG/0.8 ML SYR SC SCH (22:00)
[2025-07-14] VITALS (9 sets, daily range): BP systolic 120–134; BP diastolic 50–79
[2025-07-14] MEDS ORDERED: Enoxaparin Sodium 120 MG/0.8 ML SYR SC SCH (06:00)
[2025-07-14 06:10] LABS: MEAN CORPUSCULAR HGB 19.6 pg (27.0-31.0); MEAN PLATELET VOLUME 9.2 fl (9.6-12.3); NUCLEATED RED BLOOD CELL 0.0 % (0.0-0.0); NUCLEATED RED BLOOD CELL 0.0 10*3/uL (0.0-0.0); PLATELET COUNT AUTOMATED 119 10*3/uL (130-400); RED CELL DISTRI WIDTH 29.2 % (0-14.5)
[2025-07-14 06:36] LABS: BUN 10 mg/dl (9-23); FREE T4 1.23 ng/dl (0.89-1.76); LDL CHOLESTEROL 32 mg/dL (9-159)
[2025-07-14 06:52] LABS: MEAN CELL VOLUME 78.7 fl (81.0-99.0)
[2025-07-14 07:27] LABS: VITAMIN D, 25-HYDROXY 54.2 ng/mL (30-100)
[2025-07-14] MEDS ORDERED: DILTIAZEM HCL IN NACL,ISO-OSM 5 ML IV ONE (08:40)
[2025-07-14] MEDS ORDERED: BUMETANIDE 1 MG/4 ML VIAL IV SCH ×2 (10:00→18:00)
[2025-07-14] MEDS ORDERED: RIVAROXABAN 20 MG TAB PO SCH ×2 (10:00→18:00)
[2025-07-14] MEDS ORDERED: LEVOFLOXACIN 750 MG TAB PO SCH (13:30)
[2025-07-14] MEDS ORDERED: MAGNESIUM SULFATE 50 ML IV ONE (15:25)
[2025-07-14] MEDS ORDERED: DULOXETINE HCL60 MG PO (15:44)
[2025-07-14] MEDS ORDERED: IRON325 M1 PO (15:45)
[2025-07-14] MEDS ORDERED: NATURE'S BLEND F1 MG PO (15:45)
[2025-07-14] MEDS ORDERED: BUDESONIDE-FO10.2 GM INH (15:47)
[2025-07-14] MEDS ORDERED: MAGNESIUM GLYC100 M1 PO (15:48)
[2025-07-14] MEDS ORDERED: DILTIAZEM HCL IN NACL,ISO-OSM 100 ML IV SCH (18:55)
[2025-07-15] VITALS (9 sets, daily range): BP systolic 131–174; BP diastolic 45–74
[2025-07-15] MEDS ORDERED: TEMAZEPAM 15 MG CAP PO SCH (03:50)
[2025-07-15] MEDS ORDERED: TEMAZEPAM 15 MG CAP PO PRN (03:56)
[2025-07-15] MEDS ORDERED: TEMAZEPAM 15 MG CAP PO ONE (04:00)
[2025-07-15 06:28] LABS: BASO # 0.1 10*3/uL (0.0-0.1); BASO % 0.9 % (0.0-1.0); EOS # 0.5 10*3/uL (0.0-0.4); EOS % 9.1 % (1.0-4.0); MEAN CELL VOLUME 77.7 fl (81.0-99.0); MEAN CORPUSCULAR HGB 19.9 pg (27.0-31.0); MEAN PLATELET VOLUME 9.5 fl (9.6-12.3); MONO # 0.8 10*3/uL (0.1-1.0); MONO % 13.5 % (3.0-9.0); NEUT # 3.1 10*3/uL (2.3-7.9); NEUT % 54.9 % (47.0-73.0); NUCLEATED RED BLOOD CELL 0.0 % (0.0-0.0); NUCLEATED RED BLOOD CELL 0.0 10*3/uL (0.0-0.0); PLATELET COUNT AUTOMATED 105 10*3/uL (130-400); RED CELL DISTRI WIDTH 28.1 % (0-14.5)
[2025-07-15 06:40] LABS: BUN 8 mg/dl (9-23); SGPT/ALT 14 U/L (5-49)
[2025-07-15 11:08] LABS: HEMOGOLBIN A1C 4.7 % (4.8-5.6)
[2025-07-15] MEDS ORDERED: Acetaminophen/Hydrocodone 5 MG/325 MG TABLET PO PRN (11:45)
[2025-07-15] MEDS ORDERED: DIGOXIN 500 MCG/2 ML AMP IV ONE (12:40)
[2025-07-16] VITALS (10 sets, daily range): BP systolic 110–156; BP diastolic 41–83
[2025-07-16 06:25] LABS: BASO # 0.0 10*3/uL (0.0-0.1); BASO % 0.9 % (0.0-1.0); EOS # 0.6 10*3/uL (0.0-0.4); EOS % 14.0 % (1.0-4.0); MEAN CELL VOLUME 76.8 fl (81.0-99.0); MEAN CORPUSCULAR HGB 20.3 pg (27.0-31.0); MONO # 0.6 10*3/uL (0.1-1.0); MONO % 14.0 % (3.0-9.0); NEUT # 2.0 10*3/uL (2.3-7.9); NEUT % 43.8 % (47.0-73.0); NUCLEATED RED BLOOD CELL 0.0 % (0.0-0.0); NUCLEATED RED BLOOD CELL 0.0 10*3/uL (0.0-0.0); PLATELET COUNT AUTOMATED 109 10*3/uL (130-400); RED CELL DISTRI WIDTH 28.2 % (0-14.5)
[2025-07-16 06:38] LABS: BUN 7 mg/dl (9-23)
[2025-07-16] MEDS ORDERED: POTASSIUM CHLORIDE 20 MEQ TAB PO ONE (07:45)
[2025-07-16] MEDS ORDERED: DIGOXIN 125 MCG TAB PO SCH (14:00)
[2025-07-16] MEDS ORDERED: BUMETANIDE 1 MG/4 ML VIAL IV SCH (18:00)
[2025-07-16] MEDS ORDERED: RIVAROXABAN 20 MG TAB PO SCH (18:00)
[2025-07-17] VITALS: BP 135/51
[2025-07-17 05:58] LABS: BUN 9 mg/dl (9-23)
[2025-07-17 06:41] LABS: BASO # 0.0 10*3/uL (0.0-0.1); BASO % 0.7 % (0.0-1.0); EOS # 0.6 10*3/uL (0.0-0.4); EOS % 10.8 % (1.0-4.0); MEAN CELL VOLUME 76.0 fl (81.0-99.0); MEAN CORPUSCULAR HGB 19.7 pg (27.0-31.0); MONO # 0.8 10*3/uL (0.1-1.0); MONO % 13.4 % (3.0-9.0); NEUT # 3.1 10*3/uL (2.3-7.9); NEUT % 55.5 % (47.0-73.0); NUCLEATED RED BLOOD CELL 0.0 % (0.0-0.0); NUCLEATED RED BLOOD CELL 0.0 10*3/uL (0.0-0.0); PLATELET COUNT AUTOMATED 104 10*3/uL (130-400); RED CELL DISTRI WIDTH 28.0 % (0-14.5)
[2025-07-17 08:00] VITALS: BP 128/52
[2025-07-17] MEDS ORDERED: POTASSIUM CHLORIDE 20 MEQ TAB PO ONE (09:50)
[2025-07-17 11:53] VITALS: BP 154/48
[2025-07-17 12:00] VITALS: BP 130/61
[2025-07-17 16:00] VITALS: BP 152/56
[2025-07-17 20:00] VITALS: BP 152/60
[2025-07-18] VITALS: BP 132/70
[2025-07-18 05:49] LABS: BUN 9 mg/dl (9-23)
[2025-07-18 06:16] LABS: BASO # 0.0 10*3/uL (0.0-0.1); BASO % 0.9 % (0.0-1.0); EOS # 0.7 10*3/uL (0.0-0.4); EOS % 15.5 % (1.0-4.0); MEAN CELL VOLUME 76.3 fl (81.0-99.0); MEAN CORPUSCULAR HGB 20.3 pg (27.0-31.0); MONO # 0.7 10*3/uL (0.1-1.0); MONO % 15.7 % (3.0-9.0); NEUT # 2.0 10*3/uL (2.3-7.9); NEUT % 44.6 % (47.0-73.0); NUCLEATED RED BLOOD CELL 0.0 % (0.0-0.0); NUCLEATED RED BLOOD CELL 0.0 10*3/uL (0.0-0.0); PLATELET COUNT AUTOMATED 97 10*3/uL (130-400); RED CELL DISTRI WIDTH 27.6 % (0-14.5)
[2025-07-18 08:00] VITALS: BP 146/79
[2025-07-18] MEDS ORDERED: POTASSIUM CHLORIDE 20 MEQ TAB PO ONE (08:10)
[2025-07-18] MEDS ORDERED: OMEPRAZOLE 20 MG CAP PO SCH (10:50)
[2025-07-18 12:00] VITALS: BP 149/72
[2025-07-18] MEDS ORDERED: Acetaminophen/Hydrocodone ES 7.5/325 tablet PO PRN (12:30)
[2025-07-18 16:00] VITALS: BP 136/65
[2025-07-18 20:00] VITALS: BP 137/68
[2025-07-18 20:10] VITALS: BP 113/50
[2025-07-19] VITALS: BP 120/75
[2025-07-19 04:31] LABS: MEAN CELL VOLUME 75.2 fl (81.0-99.0); MEAN CORPUSCULAR HGB 20.3 pg (27.0-31.0); NUCLEATED RED BLOOD CELL 0.0 % (0.0-0.0); NUCLEATED RED BLOOD CELL 0.0 10*3/uL (0.0-0.0); PLATELET COUNT AUTOMATED 102 10*3/uL (130-400); RED CELL DISTRI WIDTH 27.4 % (0-14.5)
[2025-07-19 04:33] LABS: MANUAL DIFF REFLEX YES
[2025-07-19 04:50] LABS: BUN 13 mg/dl (9-23)
[2025-07-19 05:06] LABS: BASOPHILS 1 % (0-1)
[2025-07-19 05:07] LABS: PLATELET SUFFICIENCY LOW (NORMAL); STOMATOCYTE FEW
[2025-07-19] MEDS ORDERED: POTASSIUM CHLORIDE 20 MEQ TAB PO ONE (07:55)
[2025-07-19 08:00] VITALS: BP 141/66
[2025-07-19] MEDS ORDERED: TEMAZEPAM 15 MG CAP PO PRN (09:00)
[2025-07-19] MEDS ORDERED: BUMETANIDE1 MG PO (11:56)
[2025-07-19] MEDS ORDERED: HYDROCODONE-AC1 EAC2 PO (11:56)
[2025-07-19] MEDS ORDERED: LEVOFLOXACIN750 M2 PO (11:56)
[2025-07-19] MEDS ORDERED: DIGOXIN125 MCG PO (11:56)
[2025-07-19] MEDS ORDERED: LOPRESSOR25 MG PO (11:56)
[2025-07-19] MEDS ORDERED: IRON325 M1 PO (11:56)
[2025-07-19] MEDS ORDERED: DULOXETINE HCL30 MG PO (11:56)
== END 2025-07-19 13:05 | disposition home or self-care (01) | DRG 133 ==
LOC: ED 21:08 → 5E 07-13 12:34 → EDHOLD 07-13 12:34 → 5E 07-13 20:39 → 4E 07-15 13:49 → 5E 07-17 06:30 → 4E 07-18 19:20
PROVIDERS: Internal Medicine; Student in an Organized Health Care Education/Training Program; ADMIT Student in an Organized Health Care Education/Training Program; ATTEND Student in an Organized Health Care Education/Training Program
DX: J96.01 Acute respiratory failure with hypoxia (principal); I50.41 Acute combined systolic (congestive) and diastolic (congestive) heart failure; R18.8 Other ascites; I48.21 Permanent atrial fibrillation; R17 Unspecified jaundice; D61.818 Other pancytopenia; N18.31 Chronic kidney disease, stage 3a; K21.9 Gastro-esophageal reflux disease without esophagitis; G89.29 Other chronic pain; J44.1 Chronic obstructive pulmonary disease with (acute) exacerbation; E66.01 Morbid (severe) obesity due to excess calories; K80.20 Calculus of gallbladder without cholecystitis without obstruction; N83.201 Unspecified ovarian cyst, right side; R73.9 Hyperglycemia, unspecified; F41.1 Generalized anxiety disorder; F32.A Depression, unspecified; K57.30 Diverticulosis of large intestine without perforation or abscess without bleeding; J98.11 Atelectasis; E87.8 Other disorders of electrolyte and fluid balance, not elsewhere classified; F32.9 Major depressive disorder, single episode, unspecified; E87.6 Hypokalemia; J45.909 Unspecified asthma, uncomplicated; Z88.0 Allergy status to penicillin; Z88.8 Allergy status to other drugs, medicaments and biological substances; Z80.0 Family history of malignant neoplasm of digestive organs; Z86.711 Personal history of pulmonary embolism; Z79.01 Long term (current) use of anticoagulants; Z68.42 Body mass index [BMI] 45.0-49.9, adult